=== PATIENT | male | born 1955 | race Two or more races ===

== ENCOUNTER 2018-05-01 13:59 | Emergency (ER) | payer MEDICAID, OTHER ==
[~2018-05-01] VITALS: Ht 175.3 cm; Wt 101.2 kg
[2018-05-01] MEDS ORDERED: cloNIDine HCL 0.1 MG TAB PO ONE ×2 (14:15→16:45)
[2018-05-01 14:44] LABS: Basophils # (auto) 0.1 uL; Basophils % (auto) 1.3 % (0.0-2.0); Eosinophils # (auto) 0.3 uL; Eosinophils % (auto) 3.8 % (0.0-7.0); Hematocrit 44.3 % (41.0-53.0); Hemoglobin 15.4 g/dL (13.5-17.5); Lymphocytes # (auto) 2.7 uL; Lymphocytes % (auto) 39.5 % (10.0-50.0); Mean Corpuscular Hemoglobin 32.5 pg (28.0-32.0); Mean Corpuscular Hgb Conc. 34.6 g/dL (32.0-36.0); Mean Corpuscular Volume 93.8 fL (80.0-100.0); Monocytes # (auto) 0.4 uL; Monocytes % (auto) 5.5 % (0.0-12.0); Neutrophils # (auto) 3.4 uL; Neutrophils % (auto) 49.9 % (37.0-80.0); Nucleated Red Blood Cells % 0.2 %; Platelet Count (auto) 328 10^3/uL (140-450); Red Blood Cells 4.73 10^6/uL (4.5-5.90); Red Cell Distribution Width 13.4 % (11.8-14.3); White Blood Cell 6.9 10^3/uL (4.4-10.8)
[2018-05-01 14:57] LABS: INR 0.97 (0.9-1.15); Partial Thromboplastin Time 29.4 sec (23.78-33.04); Prothrombin Time 10.4 sec (9.27-12.13)
[2018-05-01 15:06] LABS: Alanine Aminotransferase 38 U/L (16-61); Alkaline Phosphatase 103 U/L (45-117); Anion Gap 9 (5-15); Aspartate Aminotransferase 28 U/L (15-37); BUN/Creatinine Ratio 18.9; Bilirubin, Total 0.7 mg/dL (0.2-1.0); Blood Urea Nitrogen 20 mg/dL (7-18); Calcium 8.4 mg/dL (8.5-10.1); Carbon Dioxide 23 mmol/L (21-32); Chloride 109 mmol/L (98-107); GFR African American 92 mL/min; GFR Non-African American 76 mL/min; Glucose 94 mg/dL (74-106); Sodium 141 mmol/L (136-145); Total Protein 7.9 g/dL (6.4-8.2)
[2018-05-01 16:43] VITALS: BP 161/111
== END 2018-05-01 17:29 | disposition home or self-care (01) ==
LOC: ER 14:05
DX: I48.91 Unspecified atrial fibrillation (principal); I10 Essential (primary) hypertension
CPT/HCPCS: 36415; 80053; 83880; 84484; 85025; 85610; 85730; 93005

== ENCOUNTER 2024-12-30 10:28 | Inpatient (IN) | payer MEDICAID ==
[2024-12-23 12:29] LABS: Urine Bacteria None Seen /hpf (None Seen)
[2024-12-23 12:40] LABS: Basophils # (auto) 0.1 10 ^3/uL (0-0.2); Basophils % (auto) 0.6 % (0.0-2.0); Eosinophils # (auto) 0.2 10 ^3/uL (0-0.8); Hematocrit 41.9 % (41.0-53.0); Hemoglobin 14.1 g/dL (13.5-17.5); Lymphocytes # (auto) 2.3 10 ^3/uL (0.4-5.4); Lymphocytes % (auto) 20.9 % (10.0-50.0); Mean Corpuscular Hemoglobin 30.6 pg (28.0-32.0); Mean Corpuscular Hgb Conc. 33.6 g/dL (32.0-36.0); Mean Corpuscular Volume 91.1 fL (80.0-100.0); Monocytes # (auto) 0.6 10 ^3/uL (0-1.3); Monocytes % (auto) 5.8 % (0.0-12.0); Neutrophils # (auto) 7.6 10 ^3/uL (1.6-8.6); Neutrophils % (auto) 70.7 % (37.0-80.0); Nucleated Red Blood Cells % 0.1 %; Platelet Count (auto) 332 10^3/uL (140-450); Red Blood Cells 4.59 10^6/uL (4.5-5.90); Red Cell Distribution Width 12.6 % (11.8-14.3); White Blood Cell 10.8 10^3/uL (4.4-10.8)
[2024-12-23 12:54] LABS: INR 1.01 (0.9-1.15); Partial Thromboplastin Time 28.5 SEC (24.5-34.5); Prothrombin Time 10.7 sec (9.3-11.8)
[2024-12-23 13:09] LABS: Urine Blood Negative /uL (Negative); Urine Clarity Turbid (Clear); Urine Color Yellow (Yellow); Urine Hyaline Cast FEW /lpf (0 - 2); Urine Mucus FEW (None Seen); Urine Protein, UAD 1+ (Negative); Urine Specific Gravity 1.031 (1.001-1.035); Urine Squamous Epithelial Cell FEW /hpf (<5); Urine Urobilinogen 3 mg/dL (Negative); Urine WBC 4 /HPF (0-3)
[2024-12-23 13:52] LABS: Alanine Aminotransferase 20 U/L (7-40); Anion Gap 9 (5-15); Blood Urea Nitrogen 16 mg/dL (9-23); Carbon Dioxide 26 mmol/L (20-31); Chloride 103 mmol/L (98-107); Sodium 138 mmol/L (136-145)
[2024-12-23 13:53] LABS: Albumin 4.8 g/dL (3.2-4.8); Aspartate Aminotransferase 35 U/L (13-40); Bilirubin, Total 0.8 mg/dL (0.2-1.0); Total Protein 7.2 g/dL (5.7-8.2)
[2024-12-23 13:56] LABS: Alkaline Phosphatase 126 U/L (46-116); Glucose 129 mg/dL (74-106)
[~2024-12-30] VITALS: Ht 175.3 cm; Wt 87.2 kg
[~2024-12-30 10:28] MED LIST: APIX5TAB PO; ATOR-507 PO; METF-370 PO; METO25TA5 PO
[2024-12-30] MEDS ORDERED: MIDAZOLAM HCL 2MG/2ML 2ml VIAL (1mg/ml) ONE (11:09)
[2024-12-30] MEDS ORDERED: GLYCOPYRROLATE 0.2 MG/ML 1ML VIAL ONE (11:10)
[2024-12-30] MEDS ORDERED: ONDANSETRON HCL 4 MG/2 ML VIAL ONE (11:10)
[2024-12-30] MEDS ORDERED: PROPOFOL 10 MG/ML 20 ML IV ONE (11:10)
[2024-12-30] MEDS ORDERED: fentaNYL CITRATE 100 MCG/2 ML VL ONE (11:51)
[2024-12-30 12:12] VITALS: PULSE 89; RESP 18; O2SAT 98
--- NOTE | 2024-12-30 12:13 | DVHOP2 ---
Operative Report - 2 Report Details Date: 12/30/24 Preop Diagnosis: 1. Right foot mass 2. Right foot pain Postop Diagnosis: Same as preop Surgeon: Gali Alcantara MD Anesthesiologist: See anesthesia Anesthesia: Mac Consent: The patient was informed of the risks and benefits of the procedure. These include but are not limited to complications of anesthesia, postoperative infection, incomplete relief of symptoms, recurrence of symptoms, damage to blood vessels, nerves and tendons, deep venous thrombosis, pulmonary embolism and possible need for repeat surgery in the future. Complications: None Estimated Blood Loss: Minimal Fluids: See anesthesia Findings: Consistent with diagnosis Indications for Surgery: Worsening wound mass Name of Procedure Performed 1. Right foot mass removal (14144) Procedure Details Procedure Details: PRE-PROCEDURE INFORMATION: In the pre-op holding area, the extremity to be operated on was clearly marked and the patient verified correct laterality of the marking. The patient was transferred to the OR table and placed in a supine position. A timeout was performed in which identification of the correct patient, procedure, location, and materials was done. The right foot and leg were prepped and draped in normal sterile fashion. DESCRIPTION OF PROCEDURE: Attention was directed to the right foot where the soft tissue mass was located, where a linear longitudinal incision was made. This incision was deepened through blunt and sharp dissection. Care was taken to avoid damage to neurovascular structures throughout dissection. Hemostasis during dissection was achieved via electrocautery. The incision was carried to the level of the soft tissue mass. Utilizing sharp instrumentation, this soft tissue mass was resected and sent to pathology for evaluation. All surgical wounds were irrigated copiously with saline and closed in layers with the aforementioned suture material. A dry sterile dressing was placed on the surgical extremity. The patient was placed in a POSTOPERATIVE INFORMATION: The patient tolerated the above noted procedure and anesthesia well and was transferred to the PACU with vital signs stable, and vascular status intact with capillary refill intact to all digits. Patient will be admitted. Patient will need to have a graft placed on Saturday. Condition Good Disposition Still a Patient GALI ALCANTARAM Dec 30, 2024 12:13
[2024-12-30] MEDS ORDERED: HYDROmorphone HCL 2 MG/ML VL/or syr IV PRN (12:30)
[2024-12-30] MEDS ORDERED: NITROGLYCERIN 0.4 MG SL TAB SL PRN (13:15)
[2024-12-30] MEDS ORDERED: MORPHINE SULFATE INJ 2 MG/ml SYRG IV PRN (13:15)
[2024-12-30] MEDS ORDERED: DEXTROSE (50%) 50ML SYRG IV PRN (14:30)
--- NOTE | 2024-12-30 14:30 | DVHHP2 ---
Review of Systems Allergies: Coded Allergies: NO KNOWN ALLERGIES (Unverified , 05/01/18) Medications Current Medications Medications Dose Ordered Sig/Rianna Route Start Time Stop Time Status Last Admin Dose Admin Nitroglycerin 0.4 mg Q5MINP PRN SL 12/30/24 13:15 UNV Morphine Sulfate 2 mg Q30M PRN IV 12/30/24 13:15 UNV Exam Vital Signs Vital Signs Date Time Temp Pulse Resp B/P (MAP) Pulse Ox O2 Delivery O2 Flow Rate FiO2 12/30/24 14:00 81 16 148/100 (116) 97 12/30/24 12:12 Mask 6.0 98 12/30/24 12:12 98.3 98.3 Labs/Xrays Labs Test 12/30/24 12:29 12/23/24 12:26 Range/Units POC Glucose 99 70-106 mg/dl White Blood Count 10.8 4.4-10.8 10^3/uL Red Blood Count 4.59 4.5-5.90 10^6/uL Hemoglobin 14.1 13.5-17.5 g/dL Hematocrit 41.9 41.0-53.0 % Mean Corpuscular Volume 91.1 80.0-100.0 fL Mean Corpuscular Hemoglobin 30.6 28.0-32.0 pg Mean Corpuscular Hemoglobin Concent 33.6 32.0-36.0 g/dL Red Cell Distribution Width 12.6 11.8-14.3 % Platelet Count 332 140-450 10^3/uL Mean Platelet Volume 7.2 6.9-10.8 fL Neutrophils (%) (Auto) 70.7 37.0-80.0 % Lymphocytes (%) (Auto) 20.9 10.0-50.0 % Monocytes (%) (Auto) 5.8 0.0-12.0 % Eosinophils (%) (Auto) 2.0 0.0-7.0 % Basophils (%) (Auto) 0.6 0.0-2.0 % Neutrophils # (Auto) 7.6 1.6-8.6 10 ^3/uL Lymphocytes # (Auto) 2.3 0.4-5.4 10 ^3/uL Monocytes # (Auto) 0.6 0-1.3 10 ^3/uL Eosinophils # (Auto) 0.2 0-0.8 10 ^3/uL Basophils # (Auto) 0.1 0-0.2 10 ^3/uL Nucleated Red Blood Cells 0.1 % Prothrombin Time 10.7 9.3-11.8 sec Prothrombin Time INR 1.01 0.9-1.15 Activated Partial Thromboplast Time 28.5 24.5-34.5 SEC Urine Color Yellow Yellow Urine Clarity Turbid H Clear Urine pH 6.0 5.0-9.0 Urine Specific [place] 1.031 1.001-1.035 Urine Protein 1+ H Negative Urine Ketones Trace Negative Urine Blood Negative Negative /uL Urine Nitrite Negative Negative Urine Bilirubin Negative Negative Urine Urobilinogen 3 H Negative mg/dL Urine Leukocyte Esterase Trace Negative /uL Urine RBC 43 0 - 3 /hpf Urine Microscopic WBC 4 H 0-3 /HPF Urine Squamous Epithelial Cells Few <5 /hpf Urine Bacteria None seen None Seen /hpf Urine Hyaline Casts Few 0 - 2 /lpf Urine Mucus Few None Seen Urine Glucose Trace Normal mg/dL Sodium Level 138 136-145 mmol/L Potassium Level 4.0 3.5-5.1 mmol/L Chloride Level 103 98-107 mmol/L Carbon Dioxide Level 26 20-31 mmol/L Anion Gap 9 5-15 Blood Urea Nitrogen 16 9-23 mg/dL Creatinine 0.84 0.700-1.30 mg/dL Glomerular Filtration Rate Calc 96 >90 mL/min BUN/Creatinine Ratio 19.0 10.0-20.0 Serum Glucose 129 H 74-106 mg/dL Calcium Level 10.0 8.7-10.4 mg/dL Total Bilirubin 0.8 0.2-1.0 mg/dL Aspartate Amino Transferase (AST) 35 13-40 U/L Alanine Aminotransferase (ALT) 20 7-40 U/L Alkaline Phosphatase 126 H 46-116 U/L Total Protein 7.2 5.7-8.2 g/dL Albumin 4.8 3.2-4.8 g/dL Assessment/Plan Assessment/Plan see dictated note Plan discussed with: Patient My Orders Orders - NBA LEYVA MD Procedure Category Date Status Time Admit ADMIT 12/30/24 Transmitted 13:07 Oxygen By Nasal RT 12/30/24 Transmitted Cannula 13:07 Nitroglycerin PHA 12/30/24 Logged Sublingual (Ntrostat 13:15 Morphine Sulfate PHA 12/30/24 Logged Injection 13:15 Stat Ekg For Chest [facility] 12/30/24 In Process Pain 13:07 Notify Md Of Changes [facility] 12/30/24 In Process From Base 13:07 Track Patrol For [facility] 12/30/24 In Process 24 Hours 13:07 Emergency Dysrhythmia [facility] 12/30/24 In Process Protocol 13:07 Rhythm Strips Once [facility] 12/30/24 In Process Every Shift 13:07 Consistent DIET 12/30/24 Verified Carb(Ccho)Diabetes Dinner Glucose Blood PHA 12/30/24 Verified (Accu-Chek Comfort 17:00 Mild Sliding Scale PHA 12/30/24 Verified 17:00 Date of Service: Dec 30, 2024 Billing Provider: NBA LEYVA MD Common Visit Codes: [id number] INP/OBS CARE (HIGH) NBA LEYVA MD Dec 30, 2024 14:30
--- NOTE | 2024-12-30 14:57 | DVHHP ---
ADMIT DATE: 12/30/2024 HISTORY OF PRESENT ILLNESS: The patient is a 69-year-old gentleman who was admitted after he underwent surgery on the right foot for removal of right foot mass. The patient at this time complains of minimal pain in the right foot. No chest pain or shortness of breath. No nausea or vomiting. REVIEW OF SYSTEMS: Review of rest of systems are otherwise currently negative. PAST MEDICAL HISTORY: Significant for atrial fibrillation, hyperlipidemia, diabetes and hypertension. MEDICATIONS: Include Eliquis, Lipitor, metformin, metoprolol. ALLERGIES: No known drug allergies. SOCIAL HISTORY: Denies smoking or alcohol. Lives at home with his . FAMILY HISTORY: Negative. PHYSICAL EXAMINATION: GENERAL: The patient is awake, alert. VITAL SIGNS: Temperature of 98.3; pulse 81 per minute, irregular; blood pressure 148/100. SHEENT: Unremarkable. NECK: There is no JVD, no pedal edema. LUNGS: Equal bilaterally. No added sounds. CARDIOVASCULAR: S1, S2 are regular. No murmurs. ABDOMEN: Soft. There is no organomegaly. NEUROLOGIC: Nonfocal. MUSCULOSKELETAL: The right foot is currently in the dressing. ASSESSMENT AND PLAN: * Diabetes mellitus. He will be placed on sliding scale insulin and the hemoglobin A1c will be checked. * Atrial fibrillation for which Eliquis is on hold. * Hypertension. * Hyperlipidemia. * Obesity. * Status post right foot surgery for removal of right foot mass. The patient will be placed on pain medications and followed up with Dr. Jeff. MD PAVEL Donald/CINDY/ESTEFANÍA TID: [id number] RECEIPT: [id number]
[2024-12-30 16:00] VITALS: PULSE 81
[2024-12-30 16:18] VITALS: BP_SYST 142; BP_SYST 147; BP_DIAS 104; BP_DIAS 88; PULSE 69; PULSE 72; RESP 17; RESP 18; TEMP 97.7; TEMP 98.6; O2SAT 97
[2024-12-30] MEDS: InsuLIN REG 1unit/0.01ml Soln (100units/ml) SC SCH (17:00)
[2024-12-30] MEDS: ACCU-CHEK COMFORT CURVE STRIP VI SCH (17:51)
[2024-12-30] MEDS: METOPROLOL SUCCINATE XL 50 MG TAB PO ONE (18:04)
[2024-12-30 20:00] VITALS: PULSE 81
[2024-12-30 21:00] VITALS: BP 143/94; PULSE 60; RESP 18; TEMP 98.4; O2SAT 95
[2024-12-31] VITALS (7 sets, daily range): BP systolic 138–144; BP diastolic 81–94; PULSE 70–94; RESP 18–20; TEMP 98–98.5; O2SAT 95–97
[2024-12-31 06:41] LABS: Basophils # (auto) 0 10 ^3/uL (0-0.2); Basophils % (auto) 0.4 % (0.0-2.0); Eosinophils # (auto) 0.1 10 ^3/uL (0-0.8); Eosinophils % (auto) 1.4 % (0.0-7.0); Hematocrit 40.6 % (41.0-53.0); Hemoglobin 13.6 g/dL (13.5-17.5); Lymphocytes # (auto) 2.4 10 ^3/uL (0.4-5.4); Lymphocytes % (auto) 25.2 % (10.0-50.0); Mean Corpuscular Hemoglobin 30.5 pg (28.0-32.0); Mean Corpuscular Hgb Conc. 33.6 g/dL (32.0-36.0); Mean Corpuscular Volume 90.9 fL (80.0-100.0); Monocytes # (auto) 0.5 10 ^3/uL (0-1.3); Neutrophils # (auto) 6.5 10 ^3/uL (1.6-8.6); Platelet Count (auto) 338 10^3/uL (140-450); Red Blood Cells 4.47 10^6/uL (4.5-5.90); Red Cell Distribution Width 12.5 % (11.8-14.3); White Blood Cell 9.5 10^3/uL (4.4-10.8)
[2024-12-31 06:57] LABS: Alanine Aminotransferase 15 U/L (7-40); Albumin 4.3 g/dL (3.2-4.8); Alkaline Phosphatase 80 U/L (46-116); Anion Gap 9 (5-15); Aspartate Aminotransferase 19 U/L (13-40); BUN/Creatinine Ratio 17.8 (10.0-20.0); Bilirubin, Total 0.8 mg/dL (0.2-1.0); Blood Urea Nitrogen 13 mg/dL (9-23); Calcium 9.1 mg/dL (8.7-10.4); Carbon Dioxide 26 mmol/L (20-31); Chloride 104 mmol/L (98-107); Glucose 101 mg/dL (74-106); Potassium 3.9 mmol/L (3.5-5.1); Sodium 139 mmol/L (136-145); Total Protein 6.5 g/dL (5.7-8.2)
[2024-12-31] MEDS: METOPROLOL SUCCINATE XL 50 MG TAB PO SCH (08:49)
[2024-12-31] MEDS: HYDROcodone-ACET 5/325MG TAB PO PRN (08:49)
--- NOTE | 2024-12-31 13:04 | DVHPN2 ---
Subjective Patient is a 69-year-old male who underwent a medial foot mass excision yesterday. Patient states that he has been doing well with minimal pain. Patient has kept the dressings clean dry and intact. Patient was dealing with the mass free years at this point. The mass was sent for pathology determine the origin of it. Patient does have as postop shoe and has been ambulating as tolerated. Patient denies any recent nausea, vomiting, fevers, chills. Changes from previous H/P or p: No Changes Objective Vitals Vital Signs Date Time Temp Pulse Resp B/P (MAP) Pulse Ox O2 Delivery O2 Flow Rate FiO2 12/31/24 08:57 98.2 84 20 138/94 (109) 95 98.2 12/31/24 08:00 Room Air* 0 21 Intake/Output Intake and Output 12/31/24 07:00 Intake Total 900 ml Balance 900 ml Intake Oral 800 ml IV Total 100 ml # Voids 6 Exam DERMATOLOGIC EXAM: - Skin is dry and cool to the touch dry bilaterally. - Nails 1-5 of the bilateral foot are thickened, discolored, dystrophic, and tender to palpate with subungual debris - Hair loss noted to bilateral feet - large open incision on the medial aspect of the right foot VASCULAR EXAM: - DP and PT pulses are palpable bilaterally. - FORMULATION TECHNICIAN is brisk to all digits. - Feet are cool to touch compared to lower legs bilaterally. NEUROLOGIC EXAM: - Normal light touch sensation to the superficial peroneal, deep peroneal, sural, saphenous, and tibial nerve branches. - Protective sensation is diminished as tested with a 5.07 10g [place] bilaterally. MUSCULOSKELETAL EXAM: - No gross deformities - Muscle strength is 5/5 and active motion is pain-free and symmetrical bilaterally - No pain or crepitation with passive range of motion bilaterally to all major pedal joints Medications Current Medications Medications Dose Ordered Sig/Rianna Route Start Time Stop Time Status Last Admin Dose Admin Nitroglycerin 0.4 mg Q5MINP PRN SL 12/30/24 13:15 Morphine Sulfate 2 mg Q30M PRN IV 12/30/24 13:15 Diagnostic Test (Pha) 1 strip ACHS 12/30/24 17:00 12/31/24 11:28 1 STRIP Insulin Human Regular ACHS SC 12/30/24 17:00 12/30/24 22:01 2 UNITS Dextrose 50 ml UD PRN IV 12/30/24 14:30 Acetaminophen/ Hydrocodone Bitart 1 tab Q6HPRN PRN PO 12/30/24 14:30 12/31/24 08:49 1 TAB Morphine Sulfate 2 mg Q4HPRN PRN IV 12/30/24 14:30 Ondansetron HCl 4 mg Q6HPRN PRN IV 12/30/24 14:30 Acetaminophen 650 mg Q6HP PRN PO 12/30/24 14:30 Metoprolol Succinate 25 mg DAILY PO 12/31/24 10:00 12/31/24 08:49 25 MG Hydralazine HCl 10 mg Q6HP PRN IV 12/30/24 14:30 Laboratory Results Laboratory Tests 12/31/24 05:59 Chemistry Test 12/31/24 05:59 Albumin 4.3 g/dL (3.2-4.8) Calcium Level 9.1 mg/dL (8.7-10.4) Total Protein 6.5 g/dL (5.7-8.2) LFT Test 12/31/24 05:59 Alanine Aminotransferase (ALT) 15 U/L (7-40) Alkaline Phosphatase 80 U/L (46-116) Aspartate Amino Transferase (AST) 19 U/L (13-40) Total Bilirubin 0.8 mg/dL (0.2-1.0) HgA1c, TSH Test 12/31/24 05:59 Hemoglobin A1c 5.3 % A1C (<5.7) Urinalysis Test 12/23/24 12:26 Urine Color Yellow (Yellow) Urine Clarity Turbid (Clear) H Urine pH 6.0 (5.0-9.0) Urine Specific [place] 1.031 (1.001-1.035) Urine Protein 1+ (Negative) H Urine Ketones Trace (Negative) Urine Blood Negative /uL (Negative) Urine Nitrite Negative (Negative) Urine Bilirubin Negative (Negative) Urine Urobilinogen 3 mg/dL (Negative) H Urine Leukocyte Esterase Trace /uL (Negative) Urine RBC 43 /hpf (0 - 3) Urine Microscopic WBC 4 /HPF (0-3) H Urine Squamous Epithelial Cells Few /hpf (<5) Urine Bacteria None seen /hpf (None Seen) Urine Hyaline Casts Few /lpf (0 - 2) Urine Mucus Few (None Seen) Urine Glucose Trace mg/dL (Normal) Assessment/Plan Assessment/Plan ASSESSMENT: Patient is a _ year old seen on the floor for a worsening ulcer PLAN: - The patients chart was reviewed, clinical findings were discussed with the patient, the etiologies of the conditions were discussed in detail, and a treatment plan was agreed to at this time, with both oral and written instructions provided. - discussed with the patient due to significant skin loss we will plan to take him back to the OR tomorrow for placement of dermal graft - patient will have the dermal graft in place for about 3 weeks - patient can weightbear as tolerated in the postop shoe - patient to be discharged home on 2 weeks of Augmentin 875 - patient will be NPO at midnight - take him to the OR today - we will get cultures in the OR - can weightbear as tolerated in postoperative shoe All questions were answered and concerns addressed to the patient's satisfaction. The patient was given the phone number to the clinic and was told how to make contact with the clinic should any concerns or questions arise. Patient understands that if any questions or concerns arise prior to the next appointment, we should be contacted immediately. 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
--- NOTE | 2024-12-31 14:36 | DVHPN2 ---
Progress Note Date Seen: Dec 31, 2024 Medical Necessity Reason Pt with a Central, PICC or Fol: No Subjective Patient reports: No new complaints Review of Systems: HEENT:Normal, CVS:Normal, RESPIRATORY:Normal, GI:Normal, :Normal, MSK:Normal, NEURO:Normal Objective vital signs Vital Sign Date Time Temp Pulse Resp B/P (MAP) Pulse Ox O2 Delivery O2 Flow Rate FiO2 12/31/24 13:00 98.4 92 18 144/87 (106) 96 98.4 12/31/24 08:00 Room Air* 0 21 Total Intake and Output 12/30/24 12/30/24 12/31/24 15:00 23:00 07:00 Intake Total 100 ml 0 ml 800 ml Balance 100 ml 0 ml 800 ml medications Current Medications Medications Dose Ordered Sig/Rianna Route Start Time Stop Time Status Last Admin Dose Admin Nitroglycerin 0.4 mg Q5MINP PRN SL 12/30/24 13:15 Morphine Sulfate 2 mg Q30M PRN IV 12/30/24 13:15 Diagnostic Test (Pha) 1 strip ACHS 12/30/24 17:00 12/31/24 11:28 1 STRIP Insulin Human Regular ACHS SC 12/30/24 17:00 12/30/24 22:01 2 UNITS Dextrose 50 ml UD PRN IV 12/30/24 14:30 Acetaminophen/ Hydrocodone Bitart 1 tab Q6HPRN PRN PO 12/30/24 14:30 12/31/24 08:49 1 TAB Morphine Sulfate 2 mg Q4HPRN PRN IV 12/30/24 14:30 Ondansetron HCl 4 mg Q6HPRN PRN IV 12/30/24 14:30 Acetaminophen 650 mg Q6HP PRN PO 12/30/24 14:30 Metoprolol Succinate 25 mg DAILY PO 12/31/24 10:00 12/31/24 08:49 25 MG Hydralazine HCl 10 mg Q6HP PRN IV 12/30/24 14:30 Examination: GENERAL:Normal, HEENT:Normal, NECK:Normal, LUNGS:Normal, CVS:Normal, ABDOMEN:Normal, MSK:Normal, MSK:Abnormal (RIGHT FOOT DRESSING), SKIN:Normal, NEURO:Normal, :Normal laboratory and microbiology Laboratory Tests 12/31/24 05:59 Test 12/31/24 05:59 Range/Units Serum Glucose 101 74-106 mg/dL Problem List/Assessment/Plan Problem List/Assessment/Plan * Diabetes mellitus. He will be placed on sliding scale insulin and the hemoglobin A1c will be checked. * Atrial fibrillation for which Eliquis is on hold. * Hypertension. * Hyperlipidemia. * Obesity. * Status post right foot surgery for removal of right foot mass. The patient will be placed on pain medications and followed up with Dr. Jeff. Repeat surg planned for am advance care planning- full code- time spent 19 mins Plan discussed with: Patient My Orders My Orders Orders - NBA LEYVA MD Procedure Category Date Status Time Discontinue Tele JUSTIN 12/31/24 In Process 14:31 Transfer Orders XFER 12/31/24 Transmitted 14:31 Date of Service: Dec 31, 2024 Billing Provider: NBA LEYVA MD Common Visit Codes: [id number] INP/OBS CARE(HIGH) Secondary Visit Codes: [id number] CARE PLAN 30 MINUTES NBA LEYVA MD Dec 31, 2024 14:36
[2024-12-31] MEDS: MORPHINE SULFATE INJ 2 MG/ml SYRG IV PRN (18:03)
[2025-01-01] VITALS (8 sets, daily range): BP systolic 140–155; BP diastolic 86–98; PULSE 56–87; RESP 18–20; TEMP 97.6–99; O2SAT 94–100
--- NOTE | 2025-01-01 05:44 | DVH ---
EXAM: XR Chest, 1 View CLINICAL INDICATION: PRE OP TECHNIQUE: Frontal view of the chest. COMPARISON: None FINDINGS: LUNGS AND PLEURAL SPACES: Unremarkable. No consolidation. No pneumothorax. HEART: Unremarkable. No cardiomegaly. MEDIASTINUM: Unremarkable. Normal mediastinal contour. BONES/JOINTS: Unremarkable. No acute fracture. OTHER FINDINGS: . None. ... IMPRESSION: No acute cardiopulmonary process.
--- NOTE | 2025-01-01 12:40 | DVHPN2 ---
Subjective Patient is a 69-year-old male who underwent a medial foot mass excision yesterday. Patient states that he has been doing well with minimal pain. Patient has kept the dressings clean dry and intact. Patient was dealing with the mass free years at this point. The mass was sent for pathology determine the origin of it. Patient does have as postop shoe and has been ambulating as tolerated. Patient denies any recent nausea, vomiting, fevers, chills. Changes from previous H/P or p: No Changes Objective Vitals Vital Signs Date Time Temp Pulse Resp B/P (MAP) Pulse Ox O2 Delivery O2 Flow Rate FiO2 01/01/25 10:44 77 145/88 01/01/25 09:00 98.0 18 95 98.0 01/01/25 08:00 Room Air* 0 21 Intake/Output Intake and Output 01/01/25 07:00 Intake Total 1350 ml Output Total 300 ml Balance 1050 ml Intake Oral 1350 ml Output Urine Total 300 ml # Voids 4 Exam DERMATOLOGIC EXAM: - Skin is dry and cool to the touch dry bilaterally. - Nails 1-5 of the bilateral foot are thickened, discolored, dystrophic, and tender to palpate with subungual debris - Hair loss noted to bilateral feet - large open incision on the medial aspect of the right foot VASCULAR EXAM: - DP and PT pulses are palpable bilaterally. - FOREIGN SERVICE OFFICER is brisk to all digits. - Feet are cool to touch compared to lower legs bilaterally. NEUROLOGIC EXAM: - Normal light touch sensation to the superficial peroneal, deep peroneal, sural, saphenous, and tibial nerve branches. - Protective sensation is diminished as tested with a 5.07 10g [place] bilaterally. MUSCULOSKELETAL EXAM: - No gross deformities - Muscle strength is 5/5 and active motion is pain-free and symmetrical bilaterally - No pain or crepitation with passive range of motion bilaterally to all major pedal joints Medications Current Medications Medications Dose Ordered Sig/Rianna Route Start Time Stop Time Status Last Admin Dose Admin Nitroglycerin 0.4 mg Q5MINP PRN SL 12/30/24 13:15 Morphine Sulfate 2 mg Q30M PRN IV 12/30/24 13:15 Diagnostic Test (Pha) 1 strip ACHS 12/30/24 17:00 01/01/25 10:53 1 STRIP Insulin Human Regular ACHS SC 12/30/24 17:00 12/31/24 22:00 3 UNITS Dextrose 50 ml UD PRN IV 12/30/24 14:30 Acetaminophen/ Hydrocodone Bitart 1 tab Q6HPRN PRN PO 12/30/24 14:30 12/31/24 22:30 1 TAB Morphine Sulfate 2 mg Q4HPRN PRN IV 12/30/24 14:30 12/31/24 18:03 2 MG Ondansetron HCl 4 mg Q6HPRN PRN IV 12/30/24 14:30 Acetaminophen 650 mg Q6HP PRN PO 12/30/24 14:30 Metoprolol Succinate 25 mg DAILY PO 12/31/24 10:00 01/01/25 10:44 25 MG Hydralazine HCl 10 mg Q6HP PRN IV 12/30/24 14:30 Laboratory Results Laboratory Tests 12/31/24 05:59 Urinalysis Test 12/23/24 12:26 Urine Color Yellow (Yellow) Urine Clarity Turbid (Clear) H Urine pH 6.0 (5.0-9.0) Urine Specific [place] 1.031 (1.001-1.035) Urine Protein 1+ (Negative) H Urine Ketones Trace (Negative) Urine Blood Negative /uL (Negative) Urine Nitrite Negative (Negative) Urine Bilirubin Negative (Negative) Urine Urobilinogen 3 mg/dL (Negative) H Urine Leukocyte Esterase Trace /uL (Negative) Urine RBC 43 /hpf (0 - 3) Urine Microscopic WBC 4 /HPF (0-3) H Urine Squamous Epithelial Cells Few /hpf (<5) Urine Bacteria None seen /hpf (None Seen) Urine Hyaline Casts Few /lpf (0 - 2) Urine Mucus Few (None Seen) Urine Glucose Trace mg/dL (Normal) Assessment/Plan Assessment/Plan ASSESSMENT: Patient is a 69 year old seen on the floor 2 days s/p from a mass removal PLAN: - The patients chart was reviewed, clinical findings were discussed with the patient, the etiologies of the conditions were discussed in detail, and a treatment plan was agreed to at this time, with both oral and written instructions provided. - discussed with the patient due to significant skin loss we will plan to take him back to the OR tomorrow for placement of dermal graft - patient will have the dermal graft in place for about 3 weeks - patient can weightbear as tolerated in the postop shoe - patient to be discharged home on 2 weeks of Augmentin 875 - patient has been NPO since midnight - take him to the OR today - we will get cultures in the OR - can weightbear as tolerated in postoperative shoe All questions were answered and concerns addressed to the patient's satisfaction. The patient was given the phone number to the clinic and was told how to make contact with the clinic should any concerns or questions arise. Patient understands that if any questions or concerns arise prior to the next appointment, we should be contacted immediately. 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
[2025-01-01] MEDS ORDERED: ONDANSETRON HCL 4 MG/2 ML VIAL ONE (12:58)
[2025-01-01] MEDS ORDERED: KETOROLAC TROMETH 30 MG/ML 1ML VIAL ONE (12:58)
[2025-01-01] MEDS ORDERED: PROPOFOL 10 MG/ML 20 ML IV ONE (12:58)
[2025-01-01] MEDS ORDERED: GLYCOPYRROLATE 0.2 MG/ML 1ML VIAL ONE (12:58)
[2025-01-01] MEDS ORDERED: DexAMETHasone SOD PHOS 10MG/1ML VIAL INJ ONE (12:58)
[2025-01-01] MEDS ORDERED: LIDOCAINE 1% INJ PF 5ML AMP ONE (12:58)
[2025-01-01] MEDS ORDERED: KETAMINE 50mg/ML 1ml syringe ONE (12:59)
--- NOTE | 2025-01-01 14:28 | DVHPN2 ---
Reviewed: Care Plan, H&P, Labs, Medications, Previous Orders, Radiology Changes from previous H/P or p: No Changes General: Per HPI Objective Vitals Vital Signs Date Time Temp Pulse Resp B/P (MAP) Pulse Ox O2 Delivery O2 Flow Rate FiO2 01/01/25 13:00 98.2 56 18 155/98 (117) 95 98.2 01/01/25 08:00 Room Air* 0 21 Intake/Output Intake and Output 01/01/25 07:00 Intake Total 1350 ml Output Total 300 ml Balance 1050 ml Intake Oral 1350 ml Output Urine Total 300 ml # Voids 4 Medications Current Medications Medications Dose Ordered Sig/Rianna Route Start Time Stop Time Status Last Admin Dose Admin Nitroglycerin 0.4 mg Q5MINP PRN SL 12/30/24 13:15 Morphine Sulfate 2 mg Q30M PRN IV 12/30/24 13:15 Diagnostic Test (Pha) 1 strip ACHS 12/30/24 17:00 01/01/25 10:53 1 STRIP Insulin Human Regular ACHS SC 12/30/24 17:00 12/31/24 22:00 3 UNITS Dextrose 50 ml UD PRN IV 12/30/24 14:30 Acetaminophen/ Hydrocodone Bitart 1 tab Q6HPRN PRN PO 12/30/24 14:30 12/31/24 22:30 1 TAB Morphine Sulfate 2 mg Q4HPRN PRN IV 12/30/24 14:30 12/31/24 18:03 2 MG Ondansetron HCl 4 mg Q6HPRN PRN IV 12/30/24 14:30 Acetaminophen 650 mg Q6HP PRN PO 12/30/24 14:30 Metoprolol Succinate 25 mg DAILY PO 12/31/24 10:00 01/01/25 10:44 25 MG Hydralazine HCl 10 mg Q6HP PRN IV 12/30/24 14:30 Laboratory Results Laboratory Tests 12/31/24 05:59 Urinalysis Test 12/23/24 12:26 Urine Color Yellow (Yellow) Urine Clarity Turbid (Clear) H Urine pH 6.0 (5.0-9.0) Urine Specific [place] 1.031 (1.001-1.035) Urine Protein 1+ (Negative) H Urine Ketones Trace (Negative) Urine Blood Negative /uL (Negative) Urine Nitrite Negative (Negative) Urine Bilirubin Negative (Negative) Urine Urobilinogen 3 mg/dL (Negative) H Urine Leukocyte Esterase Trace /uL (Negative) Urine RBC 43 /hpf (0 - 3) Urine Microscopic WBC 4 /HPF (0-3) H Urine Squamous Epithelial Cells Few /hpf (<5) Urine Bacteria None seen /hpf (None Seen) Urine Hyaline Casts Few /lpf (0 - 2) Urine Mucus Few (None Seen) Urine Glucose Trace mg/dL (Normal) Assessment/Plan Assessment/Plan Diabetes mellitus. He will be placed on sliding scale insulin and the hemoglobin A1c will be checked Atrial fibrillation for which Eliquis is on hold. Hypertension Hyperlipidemia Obesity Status post right foot surgery for removal of right foot mass. The patient will be placed on pain medications and followed up with Dr. Jeff. 01/01/2025 pending surgery again this AM Plan discussed with: Patient Date of Service: Jan 01, 2025 Billing Provider: ALEKSANDAR ANDERSON DO Common Visit Codes: [id number] INP/OBS CARE(HIGH) ALEKSANDAR ANDERSON DO Jan 01, 2025 14:28
[2025-01-01] MEDS: BUPIVACAINE 0.5% P/F INJ 10 ML VIAL ONE (14:33)
--- NOTE | 2025-01-01 14:55 | DVHOP2 ---
Operative Report - 2 Report Details Date: 01/01/25 Preop Diagnosis: 1. Right foot mass 2. Right foot pain Postop Diagnosis: Same as preop Surgeon: Gali Alcantara MD Anesthesiologist: See anesthesia Anesthesia: Mac Implant: Integra dermal graft 5 x 4 Consent: The patient was informed of the risks and benefits of the procedure. These include but are not limited to complications of anesthesia, postoperative infection, incomplete relief of symptoms, recurrence of symptoms, damage to blood vessels, nerves and tendons, deep venous thrombosis, pulmonary embolism and possible need for repeat surgery in the future. Complications: None Estimated Blood Loss: Minimal Fluids: See anesthesia Findings: Consistent with diagnosis Indications for Surgery: Large mass excision with significant skin loss Name of Procedure Performed 1. Right foot wound bed preparation for graft (34965) 2. Right foot application of dermal graft (40067) Procedure Details Procedure Details: PRE-PROCEDURE INFORMATION: In the pre-op holding area, the extremity to be operated on was clearly marked and the patient verified correct laterality of the marking. The patient was transferred to the OR table and placed in a supine position. A timeout was performed in which identification of the correct patient, procedure, location, and materials was done. The right foot and leg were prepped and draped in normal sterile fashion. DESCRIPTION OF PROCEDURE: Attention was directed to the right foot where the previous soft tissue tissue mass was located. Using a 15 blade, an incision was made over the area at the edges to remove any fibrotic and remaining soft tissue mass. Using a rongeur and a curette, the area was then prepped for placement of dermal graft. Care was taken to avoid damage to neurovascular structures thr oughout dissection. Hemostasis during dissection was achieved via electrocautery. After the wound bed was prepped and adequate blood flows noted to the wound, a 5 x 5 Integra dermal graft was applied to the wound. And the dermal graft was adhered to the wound jack. The wound was then dressed with Xeroform, 4x4s, ABD, Pieter wrap POSTOPERATIVE INFORMATION: The patient tolerated the above noted procedure and anesthesia well and was transferred to the PACU with vital signs stable, and vascular status intact with capillary refill intact to all digits. Patient can be discharged home with Augmentin. Patient is to leave dressings in place until he follows up with me in 1 week. Patient to see me next week in clinic. Patient can weightbear as tolerated with a postoperative shoe Condition Good Disposition [facility] GALI ALCANTARA DPM Jan 01, 2025 14:55
[2025-01-01] MEDS ORDERED: hydrALAZINE HCL 20 MG/ML VL IV PRN (15:00)
[2025-01-01] MEDS ORDERED: ONDANSETRON HCL 4 MG/2 ML VIAL IV PRN (15:00)
[2025-01-01] MEDS ORDERED: FLUMAZENIL 0.1 MG/ML INJ 10ML MDV IV PRN (15:00)
[2025-01-01] MEDS ORDERED: fentaNYL CITRATE 100 MCG/2 ML VL IV PRN (15:00)
[2025-01-01] MEDS ORDERED: ePHEDrine SULFATE 50 MG/ML AMP IV PRN (15:00)
[2025-01-01] MEDS ORDERED: HYDROmorphone HCL 2 MG/ML VL/or syr IV PRN (15:00)
[2025-01-01] MEDS ORDERED: NALOXONE HCL 0.4 MG/ML VIAL IV PRN (15:00)
[2025-01-02] VITALS (7 sets, daily range): BP systolic 133–152; BP diastolic 81–95; PULSE 52–78; RESP 16–20; TEMP 97.8–98.6; O2SAT 91–96
[2025-01-02] MEDS: ACETAMINOPHEN 325 MG TAB PO PRN (20:57)
[2025-01-03] VITALS (7 sets, daily range): BP systolic 129–158; BP diastolic 78–96; PULSE 55–76; RESP 17–18; TEMP 98.2–99.6; O2SAT 95–97
--- NOTE | 2025-01-03 13:18 | DVHPN2 ---
Reviewed: Care Plan, H&P, Labs, Medications, Previous Orders, Radiology Changes from previous H/P or p: No Changes General: Per HPI Objective Vitals Vital Signs Date Time Temp Pulse Resp B/P (MAP) Pulse Ox O2 Delivery O2 Flow Rate FiO2 01/03/25 09:37 75 158/91 01/03/25 08:34 98.3 18 95 98.3 01/02/25 20:00 Room Air* 0 21 Intake/Output Intake and Output 01/03/25 07:00 Intake Total 1690 ml Output Total 750 ml Balance 940 ml Intake Oral 1690 ml Output Urine Total 750 ml # Bowel Movements 2 Medications Current Medications Medications Dose Ordered Sig/Rianna Route Start Time Stop Time Status Last Admin Dose Admin Nitroglycerin 0.4 mg Q5MINP PRN SL 12/30/24 13:15 Morphine Sulfate 2 mg Q30M PRN IV 12/30/24 13:15 Diagnostic Test (Pha) 1 strip ACHS 12/30/24 17:00 01/03/25 11:53 1 STRIP Insulin Human Regular ACHS SC 12/30/24 17:00 01/03/25 11:55 3 UNITS Dextrose 50 ml UD PRN IV 12/30/24 14:30 Acetaminophen/ Hydrocodone Bitart 1 tab Q6HPRN PRN PO 12/30/24 14:30 12/31/24 22:30 1 TAB Morphine Sulfate 2 mg Q4HPRN PRN IV 12/30/24 14:30 01/01/25 16:19 2 MG Ondansetron HCl 4 mg Q6HPRN PRN IV 12/30/24 14:30 Acetaminophen 650 mg Q6HP PRN PO 12/30/24 14:30 01/02/25 20:57 650 MG Metoprolol Succinate 25 mg DAILY PO 12/31/24 10:00 01/03/25 09:37 25 MG Hydralazine HCl 10 mg Q6HP PRN IV 12/30/24 14:30 Laboratory Results Laboratory Tests 12/31/24 05:59 Urinalysis Test 12/23/24 12:26 Urine Color Yellow (Yellow) Urine Clarity Turbid (Clear) H Urine pH 6.0 (5.0-9.0) Urine Specific [place] 1.031 (1.001-1.035) Urine Protein 1+ (Negative) H Urine Ketones Trace (Negative) Urine Blood Negative /uL (Negative) Urine Nitrite Negative (Negative) Urine Bilirubin Negative (Negative) Urine Urobilinogen 3 mg/dL (Negative) H Urine Leukocyte Esterase Trace /uL (Negative) Urine RBC 43 /hpf (0 - 3) Urine Microscopic WBC 4 /HPF (0-3) H Urine Squamous Epithelial Cells Few /hpf (<5) Urine Bacteria None seen /hpf (None Seen) Urine Hyaline Casts Few /lpf (0 - 2) Urine Mucus Few (None Seen) Urine Glucose Trace mg/dL (Normal) Assessment/Plan Assessment/Plan Diabetes mellitus. He will be placed on sliding scale insulin and the hemoglobin A1c will be checked Atrial fibrillation for which Eliquis is on hold. Hypertension Hyperlipidemia Obesity Status post right foot surgery for removal of right foot mass. The patient will be placed on pain medications and followed up with Dr. Jeff. 01/01/2025 pending surgery again this AM 01/02/2025 continue with IV Abx Plan discussed with: Patient Date of Service: Jan 02, 2025 Billing Provider: ALEKSANDAR ANDERSON DO Common Visit Codes: [id number] INP/OBS CARE(HIGH) ALEKSANDAR ANDERSON DO Jan 03, 2025 13:18
--- NOTE | 2025-01-03 13:19 | DVHPN2 ---
Reviewed: Care Plan, H&P, Labs, Medications, Previous Orders, Radiology Changes from previous H/P or p: No Changes General: Per HPI Objective Vitals Vital Signs Date Time Temp Pulse Resp B/P (MAP) Pulse Ox O2 Delivery O2 Flow Rate FiO2 01/03/25 09:37 75 158/91 01/03/25 08:34 98.3 18 95 98.3 01/02/25 20:00 Room Air* 0 21 Intake/Output Intake and Output 01/03/25 07:00 Intake Total 1690 ml Output Total 750 ml Balance 940 ml Intake Oral 1690 ml Output Urine Total 750 ml # Bowel Movements 2 Medications Current Medications Medications Dose Ordered Sig/Rianna Route Start Time Stop Time Status Last Admin Dose Admin Nitroglycerin 0.4 mg Q5MINP PRN SL 12/30/24 13:15 Morphine Sulfate 2 mg Q30M PRN IV 12/30/24 13:15 Diagnostic Test (Pha) 1 strip ACHS 12/30/24 17:00 01/03/25 11:53 1 STRIP Insulin Human Regular ACHS SC 12/30/24 17:00 01/03/25 11:55 3 UNITS Dextrose 50 ml UD PRN IV 12/30/24 14:30 Acetaminophen/ Hydrocodone Bitart 1 tab Q6HPRN PRN PO 12/30/24 14:30 12/31/24 22:30 1 TAB Morphine Sulfate 2 mg Q4HPRN PRN IV 12/30/24 14:30 01/01/25 16:19 2 MG Ondansetron HCl 4 mg Q6HPRN PRN IV 12/30/24 14:30 Acetaminophen 650 mg Q6HP PRN PO 12/30/24 14:30 01/02/25 20:57 650 MG Metoprolol Succinate 25 mg DAILY PO 12/31/24 10:00 01/03/25 09:37 25 MG Hydralazine HCl 10 mg Q6HP PRN IV 12/30/24 14:30 Laboratory Results Laboratory Tests 12/31/24 05:59 Urinalysis Test 12/23/24 12:26 Urine Color Yellow (Yellow) Urine Clarity Turbid (Clear) H Urine pH 6.0 (5.0-9.0) Urine Specific [place] 1.031 (1.001-1.035) Urine Protein 1+ (Negative) H Urine Ketones Trace (Negative) Urine Blood Negative /uL (Negative) Urine Nitrite Negative (Negative) Urine Bilirubin Negative (Negative) Urine Urobilinogen 3 mg/dL (Negative) H Urine Leukocyte Esterase Trace /uL (Negative) Urine RBC 43 /hpf (0 - 3) Urine Microscopic WBC 4 /HPF (0-3) H Urine Squamous Epithelial Cells Few /hpf (<5) Urine Bacteria None seen /hpf (None Seen) Urine Hyaline Casts Few /lpf (0 - 2) Urine Mucus Few (None Seen) Urine Glucose Trace mg/dL (Normal) Assessment/Plan Assessment/Plan Diabetes mellitus. He will be placed on sliding scale insulin and the hemoglobin A1c will be checked Atrial fibrillation for which Eliquis is on hold. Hypertension Hyperlipidemia Obesity Status post right foot surgery for removal of right foot mass. The patient will be placed on pain medications and followed up with Dr. Jeff. 01/01/2025 pending surgery again this AM 01/02/2025 continue with IV Abx 01/03/2025 continue with IV Abx PT/OT to evaluate discharge plan per PT rec's empirical Abx due to recent surgery Plan discussed with: Patient Date of Service: Jan 03, 2025 Billing Provider: ALEKSANDAR ANDERSON DO Common Visit Codes: [id number] INP/OBS CARE(HIGH) ALEKSANDAR ANDERSON DO Jan 03, 2025 13:19
[2025-01-04] VITALS (8 sets, daily range): BP systolic 136–167; BP diastolic 88–101; PULSE 53–98; RESP 16–18; TEMP 98.1–98.9; O2SAT 95–97
[2025-01-04] MEDS: hydrALAZINE HCL 20 MG/ML VL IV PRN (00:18)
[2025-01-04] MEDS: cefTRIAXone 1GM/50ML D5W 50 ML IV SCH (08:55)
--- NOTE | 2025-01-04 12:05 | DVHPN2 ---
Progress Note Date Seen: Jan 04, 2025 Medical Necessity Reason Pt with a Central, PICC or Fol: No Subjective Patient reports: No new complaints Review of Systems: HEENT:Normal, CVS:Normal, RESPIRATORY:Normal, GI:Normal, :Normal, MSK:Normal, NEURO:Normal Objective vital signs Vital Sign Date Time Temp Pulse Resp B/P (MAP) Pulse Ox O2 Delivery O2 Flow Rate FiO2 01/04/25 08:55 83 146/101 01/04/25 08:31 98.5 16 95 98.5 01/04/25 08:00 Room Air* 0 21 Total Intake and Output 01/03/25 01/03/25 01/04/25 15:00 23:00 07:00 Intake Total 400 ml 500 ml 560 ml Output Total 1 ml 1090 ml Balance 400 ml 499 ml -530 ml medications Current Medications Medications Dose Ordered Sig/Rianna Route Start Time Stop Time Status Last Admin Dose Admin Nitroglycerin 0.4 mg Q5MINP PRN SL 12/30/24 13:15 Morphine Sulfate 2 mg Q30M PRN IV 12/30/24 13:15 Diagnostic Test (Pha) 1 strip ACHS 12/30/24 17:00 01/04/25 11:15 1 STRIP Insulin Human Regular ACHS SC 12/30/24 17:00 01/04/25 11:18 2 UNITS Dextrose 50 ml UD PRN IV 12/30/24 14:30 Acetaminophen/ Hydrocodone Bitart 1 tab Q6HPRN PRN PO 12/30/24 14:30 12/31/24 22:30 1 TAB Morphine Sulfate 2 mg Q4HPRN PRN IV 12/30/24 14:30 01/01/25 16:19 2 MG Ondansetron HCl 4 mg Q6HPRN PRN IV 12/30/24 14:30 Acetaminophen 650 mg Q6HP PRN PO 12/30/24 14:30 01/04/25 00:17 650 MG Metoprolol Succinate 25 mg DAILY PO 12/31/24 10:00 01/04/25 08:55 25 MG Hydralazine HCl 10 mg Q6HP PRN IV 12/30/24 14:30 01/04/25 00:18 10 MG Ceftriaxone Sodium 50 ml @ 100 mls/hr DAILY@09 IV 01/04/25 09:00 01/04/25 08:55 100 MLS/HR Examination: GENERAL:Normal, HEENT:Normal, NECK:Normal, LUNGS:Normal, CVS:Normal, ABDOMEN:Normal, MSK:Normal, MSK:Abnormal (RIGHT FOOT DRESSING), SKIN:Normal, NEURO:Normal, :Normal laboratory and microbiology Laboratory Tests 12/31/24 05:59 Test 12/31/24 05:59 Range/Units Serum Glucose 101 74-106 mg/dL Problem List/Assessment/Plan Problem List/Assessment/Plan * Diabetes mellitus. He will be placed on sliding scale insulin and the hemoglobin A1c will be checked. * Atrial fibrillation for which Eliquis is on hold. * Hypertension. * Hyperlipidemia. * Obesity. * Status post right foot surgery for removal of right foot mass- melanoma, onc consult- dw dr Arreola advance care planning- full code- time spent 19 mins Plan discussed with: Patient Dietary Evaluation Review Comments: 1. Continue current diet regime Expected Outcomes/Goals: 1. Wound healing, PO >75% intake Date of Service: Jan 04, 2025 Billing Provider: NBA LEYVA MD Common Visit Codes: [id number] INP/OBS CARE(HIGH) NBA LEYVA MD Jan 04, 2025 12:05
--- NOTE | 2025-01-04 13:36 | DVHINCON2 ---
Date of service: Jan 04, [address] Angie Wyatt Reason for Consultation Melanoma incompletely resected History of Present Illness 69 years old gentleman who has a history that he had a growth on his right foot for years and in the last 3-4 months it has started to change colors and start getting bigger and causing some discomfort. He says he had a biopsy as an outpatient and was told that he has cancer four months back. He does not remember having scans of the whole body. He says he has had images on the right foot. Now he was admitted for excision of the right foot mass and had excision done on 12/30/2024 The pathology showed malignant melanoma 2.5 cm maximum thickness with ulceration, no microscopic satellite lesions, no microsatellites. Peripheral and deep margins are all positive for invasive melanoma. Mitotic rate is 15 mitoses per mm sq. LVI is indeterminate. No neuro tropism or tumor regression. No lymph nodes. Pathologically T4 B, NX no in-situ component Sections show a large tumor within the dermis with the ulceration of the overlying epidermis. However within the intact epidermis no in-situ melanoma is identified. Therefore it is unclear whether this represents a primary or metastatic tumor. The specimen was received in three unoriented pieces. With in the largest fragment tumor extends to the peripheral and deep margins and shows a tumor thickness of 2.5 cm. Additionally extensive tumor is also seen within the separately submitted fragments. The patient had a skin graft also The patient has a history of diabetes and has been trying to lose weight and has lost a few lb. No headaches nausea vomiting. No fevers night sweats no b ruising or bleeding. No pains in other parts of the body except of the right foot Past Medical History Diabetes Hypertension Hyperlipidemia Irregular heart Family History: Diabetes mellitus G8 BROTHER G8 BROTHER Family History Unremarkable for malignancy or hematological disorders Social History Patient is retired from the [employer] No smoking drinking or drugs Allergies: Coded Allergies: NO KNOWN ALLERGIES (Unverified , 05/01/18) Home Meds Reported Medications Metoprolol Tartrate (Metoprolol Tartrate) 25 Mg Tab, 25 MG PO DAILY, TAB 12/23/24 Metformin Hydrochloride (Metformin Hcl) 500 Mg Tab, 500 MG PO BIDWM, TAB 12/23/24 Apixaban Base (ELIQUIS) 5 Mg Tab, 5 MG PO BID, TAB 12/23/24 Atorvastatin Calcium (Lipitor) 40 Mg Tab, 40 MG PO DAILY, TAB 12/23/24 Current Medications Current Medications Medications (Trade) Dose Ordered Sig/Rianna Route PRN Reason Start Time Stop Time Status Last Admin Ceftriaxone Sodium 50 ml @ 100 mls/hr DAILY@09 IV 01/04/25 09:00 01/04/25 08:55 Vital Signs Vital Signs Date Time Temp Pulse Resp B/P (MAP) Pulse Ox O2 Delivery O2 Flow Rate FiO2 01/04/25 08:55 83 146/101 01/04/25 08:31 98.5 16 95 98.5 01/04/25 08:00 Room Air* 0 21 Physical Exam Moderately built and nourished, in no acute distress, alert and oriented. No jaundice Head and neck: Unremarkable for any masses or neck nodes. No conjunctival or mucosal hemorrhage Lungs: Clear Cardiovascular: S1-S2 heard well Abdomen: No organomegaly, tenderness or ascites. Bowel sounds are present. Extremities: No clubbing edema cyanosis or calf tenderness. Skin: Unremarkable for petechia purpura ecchymosis Lymphadenopathy: None Neurological exam: No focal deficit right foot is status post surgery and is in dressing Labs/Diagnostic Data Labs Test 01/04/25 11:09 12/31/24 05:59 12/23/24 12:26 Range/Units POC Glucose 148 H 70-106 mg/dl White Blood Count 9.5 4.4-10.8 10^3/uL Red Blood Count 4.47 L 4.5-5.90 10^6/uL Hemoglobin 13.6 13.5-17.5 g/dL Hematocrit 40.6 L 41.0-53.0 % Mean Corpuscular Volume 90.9 80.0-100.0 fL Mean Corpuscular Hemoglobin 30.5 28.0-32.0 pg Mean Corpuscular Hemoglobin Concent 33.6 32.0-36.0 g/dL Red Cell Distribution Width 12.5 11.8-14.3 % Platelet Count 338 140-450 10^3/uL Mean Platelet Volume 7.2 6.9-10.8 fL Neutrophils (%) (Auto) 68.0 37.0-80.0 % Lymphocytes (%) (Auto) 25.2 10.0-50.0 % Monocytes (%) (Auto) 5.0 0.0-12.0 % Eosinophils (%) (Auto) 1.4 0.0-7.0 % Basophils (%) (Auto) 0.4 0.0-2.0 % Neutrophils # (Auto) 6.5 1.6-8.6 10 ^3/uL Lymphocytes # (Auto) 2.4 0.4-5.4 10 ^3/uL Monocytes # (Auto) 0.5 0-1.3 10 ^3/uL Eosinophils # (Auto) 0.1 0-0.8 10 ^3/uL Basophils # (Auto) 0 0-0.2 10 ^3/uL Nucleated Red Blood Cells 0.0 % Sodium Level 139 136-145 mmol/L Potassium Level 3.9 3.5-5.1 mmol/L Chloride Level 104 98-107 mmol/L Carbon Dioxide Level 26 20-31 mmol/L Anion Gap 9 5-15 Blood Urea Nitrogen 13 9-23 mg/dL Creatinine 0.73 0.700-1.30 mg/dL Glomerular Filtration Rate Calc 100 >90 mL/min BUN/Creatinine Ratio 17.8 10.0-20.0 Serum Glucose 101 74-106 mg/dL Hemoglobin A1c 5.3 <5.7 % A1C Calcium Level 9.1 8.7-10.4 mg/dL Total Bilirubin 0.8 0.2-1.0 mg/dL Aspartate Amino Transferase (AST) 19 13-40 U/L Alanine Aminotransferase (ALT) 15 7-40 U/L Alkaline Phosphatase 80 46-116 U/L Total Protein 6.5 5.7-8.2 g/dL Albumin 4.3 3.2-4.8 g/dL Prothrombin Time 10.7 9.3-11.8 sec Prothrombin Time INR 1.01 0.9-1.15 Activated Partial Thromboplast Time 28.5 24.5-34.5 SEC Urine Color Yellow Yellow Urine Clarity Turbid H Clear Urine pH 6.0 5.0-9.0 Urine Specific [place] 1.031 1.001-1.035 Urine Protein 1+ H Negative Urine Ketones Trace Negative Urine Blood Negative Negative /uL Urine Nitrite Negative Negative Urine Bilirubin Negative Negative Urine Urobilinogen 3 H Negative mg/dL Urine Leukocyte Esterase Trace Negative /uL Urine RBC 43 0 - 3 /hpf Urine Microscopic WBC 4 H 0-3 /HPF Urine Squamous Epithelial Cells Few <5 /hpf Urine Bacteria None seen None Seen /hpf Urine Hyaline Casts Few 0 - 2 /lpf Urine Mucus Few None Seen Urine Glucose Trace Normal mg/dL Assessment 1. Malignant melanoma from the right foot excision done on 12/30/2024, 2.5 cm tumor thickness all the margins are positive, 15 mitoses per mm squared, LVI is indeterminate. PT4b, pNX. No scans available to review patient does not remember having any scans. He says he any biopsy four months back of the right foot. He says he has this tumor for the last 3-4 years diabetes CBC was normal and CMP was unremarkable also 3. Hypertension 4. Hyperlipidemia 5. History of irregular heartbeat Plan/Recommendation Patient needs to have complete excision of the tumor with sentinel lymph node sampling and scanning of his whole body including the MRI of the brain I will order the MRI of the brain in the hospital with and without contrast He needs to have a PET-CT as an outpatient We will do a CT of the chest abdomen pelvis with contrast the patient if possible should be referred to a higher level of care for adequate surgery The patient is advised to come see me after the surgery is done Also we will check his LDH Plan discussed with: Patient CATRACHO RODRIGUEZ MD Jan 04, 2025 13:36
[2025-01-04] MEDS: GADOTERATE MEG 7.5 MMOL/15ml INJ (0.5MMOL/ml) IV ONE (16:07)
--- NOTE | 2025-01-04 16:54 | DVH ---
MRI BRAIN WITH CONTRAST CLINICAL HISTORY: melanoma TECHNIQUE: Multiplanar multisequence images of the brain were obtained prior to and following intravenous admini stration of contrast. 10/10 cc of gadavist contrast from a prefilled syringe was administered intravenously. Comparison: None FINDINGS: There is no restricted diffusion. There are few scattered punctate hyperintense T2 foci in the suprat entorial white matter compatible with minimal chronic microvascular ischemic changes. There is no pat hologic enhancement. There is no evidence of hemorrhage, mass, mass effect or midline shift. There is no hydrocephalus or extra-axial fluid collection. The visualized intracranial vasculature demonstrat es appropriate flow-voids. The midline structures appear unremarkable. The craniocervical junction is within normal limits. The calvarium demonstrates normal marrow signal. There is a retention cyst in the left maxillary sinus. Is mucosal thickening along the posterior right maxillary sinus. The mastoi d air cells are clear. IMPRESSION: 1. There is no evidence of intracranial metastasis. HS:Y
[2025-01-04] MEDS: IOHEXOL 300 MG/ML 100ML BOTTLE IJ ONE (17:33)
--- NOTE | 2025-01-04 18:29 | DVH ---
CT CT CHEST/AB/PL W CON- IV ONLY HISTORY: melanom Comparison Study: None TECHNIQUE: Multidetector CT of the chest, abdomen and pelvis was performed from lower neck to pubic s ymphysis with the use of intravenous contrast. Axial, coronal and sagittal multiplanar reformats were performed by the technologist on a separate workstation. Radiation Dose : CTDI vol 19.68 mGy, DLP 1410.34 mGy*cm. Findings: Chest: Lungs: Multiple pulmonary nodules, the largest measures 4.0 x 3.2 cm in the right apex. Pleura: Unremarkable Heart/Great vessels: Cardiomegaly. No pericardial effusion. Mediastinum: Large ill-defined, left thyroid nodule Soft tissues/Bones: Unremarkable Abdomen: Liver: Unremarkable. Gallbladder: Unremarkable. Spleen: Unremarkable Pancreas: Unremarkable Adrenals: 1.9 cm left adrenal nodule. Kidneys: Unremarkable GI tract: Unremarkable : Enlarged prostate Vasculature: Unremarkable Lymphadenopathy: Absent Peritoneum: No ascites Musculoskeletal: Mild multilevel degenerative changes of the thoracolumbar spine. Soft tissues: Unremarkable Impression: Chest: 1. Multiple pulmonary nodules, the largest measures 4.0 x 3.2 cm in the right apex. Cannot exclude me tastatic disease. 2. Large ill-defined, left thyroid nodule. Recommend a nonemergent, outpatient thyroid ultrasound for further evaluation. Abdomen: 1. No acute abdominopelvic abnormalities. 2. 1.9 cm left adrenal nodule. Recommend an adrenal protocol CT or MRI for further evaluation. 3. Enlarged prostate. Correlate with physical exam and PSA.
[2025-01-05 01:00] VITALS: BP 150/95; PULSE 76; RESP 17; TEMP 98.3; O2SAT 97
[2025-01-05 05:00] VITALS: BP 129/81; PULSE 67; RESP 17; TEMP 97.8; O2SAT 95
[2025-01-05 08:57] VITALS: BP 144/110; PULSE 75; RESP 18; TEMP 98.1; O2SAT 97
--- NOTE | 2025-01-05 11:38 | DVHPN2 ---
Progress Note Date Seen: Jan 05, 2025 Medical Necessity Reason Pt with a Central, PICC or Fol: No Subjective Patient reports: No new complaints Review of Systems: HEENT:Normal, CVS:Normal, RESPIRATORY:Normal, GI:Normal, :Normal, MSK:Normal, NEURO:Normal Objective vital signs Vital Sign Date Time Temp Pulse Resp B/P (MAP) Pulse Ox O2 Delivery O2 Flow Rate FiO2 01/05/25 08:57 98.1 75 18 144/110 (121) 97 98.1 01/05/25 07:42 Room Air* 0 21 Total Intake and Output 01/04/25 01/04/25 01/05/25 15:00 23:00 07:00 Intake Total 50 ml 840 ml 500 ml Output Total 1000 ml Balance 50 ml 840 ml -500 ml medications Current Medications Medications Dose Ordered Sig/Rianna Route Start Time Stop Time Status Last Admin Dose Admin Nitroglycerin 0.4 mg Q5MINP PRN SL 12/30/24 13:15 Morphine Sulfate 2 mg Q30M PRN IV 12/30/24 13:15 Diagnostic Test (Pha) 1 strip ACHS 12/30/24 17:00 01/05/25 11:32 1 STRIP Insulin Human Regular ACHS SC 12/30/24 17:00 01/05/25 11:33 4 UNITS Dextrose 50 ml UD PRN IV 12/30/24 14:30 Acetaminophen/ Hydrocodone Bitart 1 tab Q6HPRN PRN PO 12/30/24 14:30 12/31/24 22:30 1 TAB Morphine Sulfate 2 mg Q4HPRN PRN IV 12/30/24 14:30 01/01/25 16:19 2 MG Ondansetron HCl 4 mg Q6HPRN PRN IV 12/30/24 14:30 Acetaminophen 650 mg Q6HP PRN PO 12/30/24 14:30 01/04/25 00:17 650 MG Metoprolol Succinate 25 mg DAILY PO 12/31/24 10:00 01/05/25 08:51 25 MG Hydralazine HCl 10 mg Q6HP PRN IV 12/30/24 14:30 01/04/25 17:17 10 MG Ceftriaxone Sodium 50 ml @ 100 mls/hr DAILY@09 IV 01/04/25 09:00 01/05/25 08:51 100 MLS/HR Examination: GENERAL:Normal, HEENT:Normal, NECK:Normal, LUNGS:Normal, CVS:Normal, ABDOMEN:Normal, MSK:Normal, MSK:Abnormal (RIGHT FOOT DRESSING), SKIN:Normal, NEURO:Normal, :Normal laboratory and microbiology Laboratory Tests 12/31/24 05:59 Test 12/31/24 05:59 Range/Units Serum Glucose 101 74-106 mg/dL Problem List/Assessment/Plan Problem List/Assessment/Plan * Diabetes mellitus. He will be placed on sliding scale insulin and the hemoglobin A1c will be checked. * Atrial fibrillation for which Eliquis is on hold. * Hypertension. * Hyperlipidemia. * Obesity. * Status post right foot surgery for removal of right foot mass- melanoma, onc consult- dw dr Arreola * Right lung mass: biopsy advance care planning- full code- time spent 19 mins Plan discussed with: Patient My Orders My Orders Orders - NBA LEYVA MD Procedure Category Date Status Time * Hematology/Oncology CONS 01/04/25 Transmitted Consult 12:00 * Radiologist Consult CONS 01/05/25 Transmitted 11:25 Dietary Evaluation Review Comments: 1. Continue current diet regime Expected Outcomes/Goals: 1. Wound healing, PO >75% intake Date of Service: Jan 05, 2025 Billing Provider: NBA LEYVA MD Common Visit Codes: [id number] INP/OBS CARE(HIGH) NBA LEYVA MD Jan 05, 2025 11:37
[2025-01-05] MEDS: fentaNYL CITRATE 100 MCG/2 ML VL IV ONE (12:15)
[2025-01-05] MEDS: MIDAZOLAM HCL 2MG/2ML 2ml VIAL (1mg/ml) IV ONE (12:15)
[2025-01-05] MEDS: LIDOCAINE 2% (LOCAL ANESTH.) PF 5ml SDV ONE (12:29)
[2025-01-05 13:00] VITALS: BP 148/86; PULSE 74; RESP 18; TEMP 98.4; O2SAT 96
--- NOTE | 2025-01-05 13:18 | DVH ---
CHEST RADIOGRAPH Indication: POST LUNG BX Technique: Single frontal view of the chest was obtained COMPARISON: XY CHEST XRAY 1 VIEW on DOS: 01/01/25 FINDINGS: Lines and Tubes: None Lungs: Clear Pleura: No effusion. No pneumothorax. Cardiomediastinal contours: Unremarkable Bones: Unremarkable IMPRESSION: No appreciable pneumothorax.
--- NOTE | 2025-01-05 13:27 | DVH ---
CT CHEST WITHOUT CONTRAST, HISTORY: LUNG BIOPSY PROCEDURE: Informed consent was obtained. The patient was placed prone on the CT scanner. A limited l ocalization CT scan of the lung was obtained. The skin overlying the lesion was prepped with chlorhex idine which was allowed to dry and draped in sterile fashion. Time out was performed. The skin and so ft tissues were infiltrated with Xylocaine, and IV sedation was administered. With intermittent CT gu idance, a 19 gauge Temno outer coaxial guiding needle was advanced into the right lung mass. The need le position was confirmed with CT scan. 1 core biopsies were obtained using Temno inner 20 gauge biop sy needle. The specimens were sent in formalin to pathology for analysis. A visceral blood patch was applied as the needle was withdrawn the needle was withdrawn, and post procedural CT obtained throug h the biopsy region. No immediate complication was identified was noted, and patient was transport to recovery in stable condition without respiratory distress. DLP = 1582 mGy-cm. SEDATION: Dr. Ingris Baldwin was personally responsible for the administration of moderate sedation during the procedure performed, including the use of an independent trained observer who had no other duties during the procedure. The drugs utilized were IV fentanyl and versed (see nursing log for details). The total time of supervision by the attending physician was approximately 45 minutes. FINDINGS: Limited CT scan demonstrates a soft tissue mass in the right upper and the biopsy needle wi thin the margin of the lung mass. No significant post biopsy hemorrhage or pneumothorax is noted. IMPRESSION/PLAN: CT guided lung biopsy. Pathology pending. Follow up 2 hours CXR.
--- NOTE | 2025-01-05 15:08 | DVH ---
CHEST RADIOGRAPH Indication: post right lung biopsy Technique: Single frontal view of the chest was obtained COMPARISON: XY CHEST PORTABLE on DOS: 01/05/25, XY CHEST XRAY 1 VIEW on DOS: 01/01/25 FINDINGS: Lines and Tubes: None Lungs: Right upper lobe opacity. Pleura: No effusion. No pneumothorax. Cardiomediastinal contours: Unremarkable Bones: Unremarkable IMPRESSION: No appreciable pneumothorax.
[2025-01-05 16:41] VITALS: BP 144/94; PULSE 60; RESP 16; TEMP 98.4; O2SAT 96
[2025-01-05 21:00] VITALS: BP 120/89; PULSE 68; RESP 20; TEMP 97.9; O2SAT 98
[2025-01-06] VITALS (7 sets, daily range): BP systolic 124–161; BP diastolic 72–103; PULSE 61–91; RESP 16–20; TEMP 97.8–98.6; O2SAT 75–97
[2025-01-06] MEDS: ONDANSETRON HCL 4 MG/2 ML VIAL IV PRN (11:32)
--- NOTE | 2025-01-06 11:37 | DVHPN2 ---
Progress Note Date Seen: Jan 06, 2025 Medical Necessity Reason Pt with a Central, PICC or Fol: No Subjective Patient reports: No new complaints Review of Systems: HEENT:Normal, CVS:Normal, RESPIRATORY:Normal, GI:Normal, :Normal, MSK:Normal, NEURO:Normal Objective vital signs Vital Sign Date Time Temp Pulse Resp B/P (MAP) Pulse Ox O2 Delivery O2 Flow Rate FiO2 01/06/25 08:48 162/111 01/06/25 08:47 85 01/06/25 08:30 97.8 16 96 97.8 01/06/25 08:00 Room Air* 0 21 Total Intake and Output 01/05/25 01/05/25 01/06/25 15:00 23:00 07:00 Intake Total 50 ml 675 ml 800 ml Balance 50 ml 675 ml 800 ml medications Current Medications Medications Dose Ordered Sig/Rianna Route Start Time Stop Time Status Last Admin Dose Admin Nitroglycerin 0.4 mg Q5MINP PRN SL 12/30/24 13:15 Morphine Sulfate 2 mg Q30M PRN IV 12/30/24 13:15 Diagnostic Test (Pha) 1 strip ACHS 12/30/24 17:00 01/06/25 11:32 1 STRIP Insulin Human Regular ACHS SC 12/30/24 17:00 01/06/25 11:33 2 UNITS Dextrose 50 ml UD PRN IV 12/30/24 14:30 Acetaminophen/ Hydrocodone Bitart 1 tab Q6HPRN PRN PO 12/30/24 14:30 12/31/24 22:30 1 TAB Morphine Sulfate 2 mg Q4HPRN PRN IV 12/30/24 14:30 01/01/25 16:19 2 MG Ondansetron HCl 4 mg Q6HPRN PRN IV 12/30/24 14:30 01/06/25 11:32 4 MG Acetaminophen 650 mg Q6HP PRN PO 12/30/24 14:30 01/04/25 00:17 650 MG Metoprolol Succinate 25 mg DAILY PO 12/31/24 10:00 01/06/25 08:47 25 MG Hydralazine HCl 10 mg Q6HP PRN IV 12/30/24 14:30 01/06/25 08:48 10 MG Ceftriaxone Sodium 50 ml @ 100 mls/hr DAILY@09 IV 01/04/25 09:00 01/06/25 08:46 100 MLS/HR Examination: GENERAL:Normal, HEENT:Normal, NECK:Normal, LUNGS:Normal, CVS:Normal, ABDOMEN:Normal, MSK:Normal, SKIN:Normal, NEURO:Normal, :Normal laboratory and microbiology Laboratory Tests 12/31/24 05:59 Test 12/31/24 05:59 Range/Units Serum Glucose 101 74-106 mg/dL Problem List/Assessment/Plan Problem List/Assessment/Plan * Diabetes mellitus. He will be placed on sliding scale insulin and the hemoglobin A1c will be checked. * Atrial fibrillation for which Eliquis is on hold. * Hypertension. * Hyperlipidemia. * Obesity. * Status post right foot surgery for removal of right foot mass- melanoma, onc consult- dw dr Arreola * Right lung mass: biopsy- repeat * abd pain: ppi advance care planning- full code- time spent 19 mins Plan discussed with: Patient My Orders My Orders Orders - NBA LEYVA MD Procedure Category Date Status Time Ct Guidance For CT 01/05/25 Resulted Needle Placeme 12:[address] 01/05/25 Resulted 12:31 Chest Portable XY 01/05/25 Resulted 12:42 Chest Portable XY 01/05/25 Transmitted 13:08 Chest Portable XY 01/05/25 Resulted 15:00 Dietary Evaluation Review Comments: 1. Continue current diet regime Expected Outcomes/Goals: 1. Wound healing, PO >75% intake Date of Service: Jan 06, 2025 Billing Provider: NBA LEYVA MD Common Visit Codes: [id number] INP/OBS CARE(HIGH) NBA LEYVA MD Jan 06, 2025 11:37
[2025-01-06] MEDS: PANTOPRAZOLE 40 MG/10 ML VIAL INJ IV ONE (12:01)
[2025-01-06] MEDS: SUCRALFATE 1 GM TAB PO ONE (12:01)
[2025-01-06] MEDS: fentaNYL CITRATE 100 MCG/2 ML VL ONE (14:23)
[2025-01-06] MEDS: MIDAZOLAM HCL 2MG/2ML 2ml VIAL (1mg/ml) ONE (14:23)
--- NOTE | 2025-01-06 15:59 | DVH ---
XY CHEST PORTABLE, HISTORY: POST LUNG BX COMPARISON: XY CHEST PORTABLE on DOS: 01/05/25, XY CHEST PORTABLE on DOS: 01/05/25, XY CHEST XRAY 1 VIE W on DOS: 01/01/25 XY CHEST PORTABLE on DOS: 01/05/25, XY CHEST PORTABLE on DOS: 01/05/25, XY CHEST XRAY 1 VIEW on DOS: TECHNICAL DATA: 1 view of the chest was obtained. FINDINGS: Lines and tubes: None Cardiomediastinal silhouette: normal Pulmonary vasculature: normal Lung expansion: normal Lung airspace: Stable right upper lobe mass. Lung interstitium: normal Pleura: normal Pneumothorax: no Bones: Unremarkable Other: no IMPRESSION: No acute intrathoracic abnormality. No pneumothorax seen.
--- NOTE | 2025-01-06 16:02 | DVH ---
PROCEDURE: CT GUIDED BIOPSY OF HISTORY: LUNG BX DOCUMENTATION: Informed consent was obtained and a procedural time out was performed. SEDATION: Moderate sedation was utilized during the procedure. The patient received benzodiazepines a nd opioids, the dosing of which was documented in the patient s permanent medical record. Pre-sedatio n history and evaluation revealed no contraindications to sedation. The patient s level of consciousn ess and physiologic status was monitored continuously by the physician and nursing staff throughout t he procedure. Total intra-service moderate sedation time was 30 minutes. TECHNIQUE: The skin over the right upper posterior chest was sterilely prepped, draped, and infiltrat ed with 1% lidocaine. Using CT guidance, a 19-gauge coaxial needle was directed into right upper lobe mass. The 20-gauge Temno biopsy needle was inserted coaxially and 3 core biopsy specimens were obtai dax. The coaxial needle was then removed and hemostasis was achieved with manual compression. Steril e dressings were applied. FINDINGS: Limited CT imaging demonstrates a right upper lobe mass. Imaging confirms the needle tip wi thin right upper lobe mass. Post-biopsy CT imaging showed no apparent complication. IMPRESSION: CT GUIDED BIOPSY OF the right upper lobe mass. PLEASE FOLLOW UP WITH PATHOLOGY FOR FINAL RESULTS.
--- NOTE | 2025-01-06 16:03 | DVH ---
CT CHEST WITHOUT CONTRAST INDICATION: LUNG BX HISTORY: LUNG BX DOCUMENTATION: Informed consent was obtained and a procedural time out was performed. SEDATION: Moderate sedation was utilized during the procedure. The patient received benzodiazepines a nd opioids, the dosing of which was documented in the patient s permanent medical record. Pre-sedatio n history and evaluation revealed no contraindications to sedation. The patient s level of consciousn ess and physiologic status was monitored continuously by the physician and nursing staff throughout t he procedure. Total intra-service moderate sedation time was 30 minutes. TECHNIQUE: The skin over the right upper posterior chest was sterilely prepped, draped, and infiltrat ed with 1% lidocaine. Using CT guidance, a 19-gauge coaxial needle was directed into right upper lobe mass. The 20-gauge Temno biopsy needle was inserted coaxially and 3 core biopsy specimens were obtai dax. The coaxial needle was then removed and hemostasis was achieved with manual compression. Sterile dressings were applied. FINDINGS: Limited CT imaging demonstrates a right upper lobe mass. Imaging confirms the needle tip wi thin right upper lobe mass. Post-biopsy CT imaging showed no apparent complication. IMPRESSION: CT GUIDED BIOPSY OF the right upper lobe mass. PLEASE FOLLOW UP WITH PATHOLOGY FOR FINAL RESULTS.
[2025-01-06] MEDS: SUCRALFATE 1 GM TAB PO SCH (21:33)
[2025-01-07 01:00] VITALS: BP 156/80; PULSE 74; RESP 19; TEMP 98.4; O2SAT 95
[2025-01-07] MEDS: PANTOPRAZOLE 40 MG/10 ML VIAL INJ IV SCH (08:41)
[2025-01-07 09:00] VITALS: BP 147/88; PULSE 50; RESP 16; TEMP 98.6; O2SAT 95
[2025-01-07 13:00] VITALS: BP 160/93; PULSE 66; RESP 20; TEMP 98.7; O2SAT 95
[2025-01-07 16:31] VITALS: BP 141/88; PULSE 92; RESP 18; TEMP 98; O2SAT 96
[2025-01-07 20:00] VITALS: RESP 18
[2025-01-07 21:00] VITALS: BP 148/89; PULSE 72; RESP 18; TEMP 99.4; O2SAT 95
[2025-01-07] MEDS: CEPHALEXIN 250 MG CAP PO SCH (21:27)
[2025-01-08] VITALS (9 sets, daily range): BP systolic 128–162; BP diastolic 84–106; PULSE 65–94; RESP 16–20; TEMP 97.7–98.8; O2SAT 95–98
[2025-01-08] MEDS: PANTOPRAZOLE 40 MG TAB PO SCH (06:23)
--- NOTE | 2025-01-08 15:11 | DVHPN2 ---
Subjective s/p ct guided bx, NAEON, pending result Reviewed: Care Plan, H&P, Labs, Medications, Previous Orders, Radiology Changes from previous H/P or p: No Changes General: Per HPI Objective Vitals Vital Signs Date Time Temp Pulse Resp B/P (MAP) Pulse Ox O2 Delivery O2 Flow Rate FiO2 01/08/25 13:00 98.1 72 18 162/84 (110) 98 98.1 01/08/25 07:56 Room Air* 0 21 Intake/Output Intake and Output 01/08/25 07:00 Intake Total 2080 ml Output Total 600 ml Balance 1480 ml Intake Oral 2080 ml Output Urine Total 600 ml # Voids 7 Medications Current Medications Medications Dose Ordered Sig/Rianna Route Start Time Stop Time Status Last Admin Dose Admin Nitroglycerin 0.4 mg Q5MINP PRN SL 12/30/24 13:15 Morphine Sulfate 2 mg Q30M PRN IV 12/30/24 13:15 Diagnostic Test (Pha) 1 strip ACHS 12/30/24 17:00 01/08/25 11:24 1 STRIP Insulin Human Regular ACHS SC 12/30/24 17:00 01/07/25 17:12 2 UNITS Dextrose 50 ml UD PRN IV 12/30/24 14:30 Acetaminophen/ Hydrocodone Bitart 1 tab Q6HPRN PRN PO 12/30/24 14:30 01/06/25 21:55 1 TAB Morphine Sulfate 2 mg Q4HPRN PRN IV 12/30/24 14:30 01/06/25 20:01 2 MG Ondansetron HCl 4 mg Q6HPRN PRN IV 12/30/24 14:30 01/06/25 11:32 4 MG Acetaminophen 650 mg Q6HP PRN PO 12/30/24 14:30 01/04/25 00:17 650 MG Metoprolol Succinate 25 mg DAILY PO 12/31/24 10:00 01/08/25 08:42 25 MG Hydralazine HCl 10 mg Q6HP PRN IV 12/30/24 14:30 01/06/25 23:15 10 MG Sucralfate 1 gm BID PO 01/06/25 22:00 01/08/25 08:42 1 GM Pantoprazole Sodium 40 mg DAILY@0600 PO 01/08/25 06:00 01/08/25 06:23 40 MG Cephalexin 500 mg TID PO 01/07/25 22:00 01/08/25 06:24 500 MG Laboratory Results Laboratory Tests 12/31/24 05:59 Urinalysis Test 12/23/24 12:26 Urine Color Yellow (Yellow) Urine Clarity Turbid (Clear) H Urine pH 6.0 (5.0-9.0) Urine Specific [place] 1.031 (1.001-1.035) Urine Protein 1+ (Negative) H Urine Ketones Trace (Negative) Urine Blood Negative /uL (Negative) Urine Nitrite Negative (Negative) Urine Bilirubin Negative (Negative) Urine Urobilinogen 3 mg/dL (Negative) H Urine Leukocyte Esterase Trace /uL (Negative) Urine RBC 43 /hpf (0 - 3) Urine Microscopic WBC 4 /HPF (0-3) H Urine Squamous Epithelial Cells Few /hpf (<5) Urine Bacteria None seen /hpf (None Seen) Urine Hyaline Casts Few /lpf (0 - 2) Urine Mucus Few (None Seen) Urine Glucose Trace mg/dL (Normal) Assessment/Plan Assessment/Plan Diabetes mellitus. He will be placed on sliding scale insulin and the hemoglobin A1c will be checked. Atrial fibrillation for which Eliquis is on hold. Hypertension. Hyperlipidemia. Obesity. Status post right foot surgery for removal of right foot mass- melanoma, onc consult- dw dr Arreola Right lung mass: biopsy- repeat pend rsult Abd pain: ppi dvt ppx n/a diet diabetic advance care planning- full code- time spent 19 mins Plan discussed with: Patient My Orders Orders - ALIN OH MD Procedure Category Date Status Time * [employer] CONS 01/08/25 Transmitted Consult Date of Service: Jan 08, 2025 Billing Provider: ALIN OH MD Common Visit Codes: [id number] INP/OBS CARE(HIGH) ALIN OH MD Jan 08, 2025 15:11
[2025-01-09 01:00] VITALS: BP 130/82; PULSE 98; RESP 18; TEMP 98.5; O2SAT 94
[2025-01-09 05:00] VITALS: BP 130/92; PULSE 74; RESP 18; TEMP 98.2; O2SAT 93
[2025-01-09] MEDS: ceFAZolin 2 GM/D5W100ml 100 ML IV ONE ×2 (07:09→07:10)
[2025-01-09] MEDS: BUPIVACAINE HCL 50 ML ONE (07:09)
[2025-01-09 09:07] VITALS: BP 123/90; PULSE 85; RESP 19; TEMP 97.4; O2SAT 95
[2025-01-09 12:46] VITALS: BP 152/112; PULSE 86; RESP 17; TEMP 97.6; O2SAT 94
--- NOTE | 2025-01-09 15:25 | DVHPN2 ---
Subjective naeon, pending result bx Reviewed: Care Plan, H&P, Labs, Medications, Previous Orders, Radiology Changes from previous H/P or p: No Changes General: Per HPI Objective Vitals Vital Signs Date Time Temp Pulse Resp B/P (MAP) Pulse Ox O2 Delivery O2 Flow Rate FiO2 01/09/25 12:46 97.6 86 17 152/112 (125) 94 97.6 01/09/25 08:00 Room Air* 0 21 Intake/Output Intake and Output 01/09/25 07:00 Intake Total 1840 ml Balance 1840 ml Intake Oral 1840 ml # Voids 6 # Bowel Movements 2 Medications Current Medications Medications Dose Ordered Sig/Rianna Route Start Time Stop Time Status Last Admin Dose Admin Nitroglycerin 0.4 mg Q5MINP PRN SL 12/30/24 13:15 Diagnostic Test (Pha) 1 strip ACHS 12/30/24 17:00 01/09/25 11:52 1 STRIP Insulin Human Regular ACHS SC 12/30/24 17:00 01/09/25 11:52 2 UNITS Dextrose 50 ml UD PRN IV 12/30/24 14:30 Ondansetron HCl 4 mg Q6HPRN PRN IV 12/30/24 14:30 01/06/25 11:32 4 MG Acetaminophen 650 mg Q6HP PRN PO 12/30/24 14:30 01/09/25 03:21 650 MG Metoprolol Succinate 25 mg DAILY PO 12/31/24 10:00 01/09/25 11:49 25 MG Hydralazine HCl 10 mg Q6HP PRN IV 12/30/24 14:30 01/08/25 15:41 10 MG Sucralfate 1 gm BID PO 01/06/25 22:00 01/08/25 21:03 1 GM Pantoprazole Sodium 40 mg DAILY@0600 PO 01/08/25 06:00 01/09/25 05:56 40 MG Cephalexin 500 mg TID PO 01/07/25 22:00 01/09/25 14:40 500 MG Laboratory Results Laboratory Tests 12/31/24 05:59 Urinalysis Test 12/23/24 12:26 Urine Color Yellow (Yellow) Urine Clarity Turbid (Clear) H Urine pH 6.0 (5.0-9.0) Urine Specific [place] 1.031 (1.001-1.035) Urine Protein 1+ (Negative) H Urine Ketones Trace (Negative) Urine Blood Negative /uL (Negative) Urine Nitrite Negative (Negative) Urine Bilirubin Negative (Negative) Urine Urobilinogen 3 mg/dL (Negative) H Urine Leukocyte Esterase Trace /uL (Negative) Urine RBC 43 /hpf (0 - 3) Urine Microscopic WBC 4 /HPF (0-3) H Urine Squamous Epithelial Cells Few /hpf (<5) Urine Bacteria None seen /hpf (None Seen) Urine Hyaline Casts Few /lpf (0 - 2) Urine Mucus Few (None Seen) Urine Glucose Trace mg/dL (Normal) Assessment/Plan Assessment/Plan Diabetes mellitus. He will be placed on sliding scale insulin and the hemoglobin A1c will be checked. Atrial fibrillation for which Eliquis is on hold. Hypertension. Hyperlipidemia. Obesity. Status post right foot surgery for removal of right foot mass- melanoma, onc consult- dw dr Arreola Right lung mass: biopsy- repeat pend rsult Abd pain: ppi dvt ppx n/a diet diabetic advance care planning- full code- time spent 19 mins Plan discussed with: Patient Date of Service: Jan 09, 2025 Billing Provider: ALIN OH MD Common Visit Codes: [id number] INP/OBS CARE(MOD) ALIN OH MD Jan 09, 2025 15:25
[2025-01-09 16:32] VITALS: BP 153/112; PULSE 60; RESP 17; TEMP 98.7; O2SAT 96
[2025-01-09 21:00] VITALS: BP 156/96; PULSE 85; RESP 20; TEMP 98.3; O2SAT 94
[2025-01-10] VITALS (7 sets, daily range): BP systolic 140–157; BP diastolic 70–97; PULSE 62–98; RESP 18–20; TEMP 97.7–98.4; O2SAT 95–99
--- NOTE | 2025-01-10 13:38 | DVHDS2 ---
Discharge Summary Date of Admission Dec 30, 2024 at 13:07 Date of Discharge: Jan 10, 2025 Labs/Diagnostic Data: Laboratory Results Test 01/10/25 05:13 12/31/24 05:59 12/23/24 12:26 POC Glucose 112 mg/dl (70-106) White Blood Count 9.5 10^3/uL (4.4-10.8) Red Blood Count 4.47 10^6/uL (4.5-5.90) Hemoglobin 13.6 g/dL (13.5-17.5) Hematocrit 40.6 % (41.0-53.0) Mean Corpuscular Volume 90.9 fL (80.0-100.0) Mean Corpuscular Hemoglobin 30.5 pg (28.0-32.0) Mean Corpuscular Hemoglobin Concent 33.6 g/dL (32.0-36.0) Red Cell Distribution Width 12.5 % (11.8-14.3) Platelet Count 338 10^3/uL (140-450) Mean Platelet Volume 7.2 fL (6.9-10.8) Neutrophils (%) (Auto) 68.0 % (37.0-80.0) Lymphocytes (%) (Auto) 25.2 % (10.0-50.0) Monocytes (%) (Auto) 5.0 % (0.0-12.0) Eosinophils (%) (Auto) 1.4 % (0.0-7.0) Basophils (%) (Auto) 0.4 % (0.0-2.0) Neutrophils # (Auto) 6.5 10 ^3/uL (1.6-8.6) Lymphocytes # (Auto) 2.4 10 ^3/uL (0.4-5.4) Monocytes # (Auto) 0.5 10 ^3/uL (0-1.3) Eosinophils # (Auto) 0.1 10 ^3/uL (0-0.8) Basophils # (Auto) 0 10 ^3/uL (0-0.2) Nucleated Red Blood Cells 0.0 % Sodium Level 139 mmol/L (136-145) Potassium Level 3.9 mmol/L (3.5-5.1) Chloride Level 104 mmol/L (98-107) Carbon Dioxide Level 26 mmol/L (20-31) Anion Gap 9 (5-15) Blood Urea Nitrogen 13 mg/dL (9-23) Creatinine 0.73 mg/dL (0.700-1.30) Glomerular Filtration Rate Calc 100 mL/min (>90) BUN/Creatinine Ratio 17.8 (10.0-20.0) Serum Glucose 101 mg/dL (74-106) Hemoglobin A1c 5.3 % A1C (<5.7) Calcium Level 9.1 mg/dL (8.7-10.4) Total Bilirubin 0.8 mg/dL (0.2-1.0) Aspartate Amino Transferase (AST) 19 U/L (13-40) Alanine Aminotransferase (ALT) 15 U/L (7-40) Alkaline Phosphatase 80 U/L (46-116) Total Protein 6.5 g/dL (5.7-8.2) Albumin 4.3 g/dL (3.2-4.8) Prothrombin Time 10.7 sec (9.3-11.8) Prothrombin Time INR 1.01 (0.9-1.15) Activated Partial Thromboplast Time 28.5 SEC (24.5-34.5) Urine Color Yellow (Yellow) Urine Clarity Turbid (Clear) Urine pH 6.0 (5.0-9.0) Urine Specific [place] 1.031 (1.001-1.035) Urine Protein 1+ (Negative) Urine Ketones Trace (Negative) Urine Blood Negative /uL (Negative) Urine Nitrite Negative (Negative) Urine Bilirubin Negative (Negative) Urine Urobilinogen 3 mg/dL (Negative) Urine Leukocyte Esterase Trace /uL (Negative) Urine RBC 43 /hpf (0 - 3) Urine Microscopic WBC 4 /HPF (0-3) Urine Squamous Epithelial Cells Few /hpf (<5) Urine Bacteria None seen /hpf (None Seen) Urine Hyaline Casts Few /lpf (0 - 2) Urine Mucus Few (None Seen) Urine Glucose Trace mg/dL (Normal) Other Laboratory Tests 12/31/24 05:59 Brief Hx & Hospital Course: 69 yo M prior with foot bx with melanoma but lost to follow up, admitted for foot mass, seen by podiatry, s/p excission and graft. pathology with malignant melanoma, and found lung lesion. currently s/p lung ct guided biopsy with pathology confirms malignant melanoma. Patient will need to follow up with PCP, oncology and podiatry for bandage removal as he has graft. Condition at Discharge: Good Final Diagnosis/Problems List malignant melanoma with lung mets Discharge Disposition: Home Discharge Instruct/Medications Diet: Cardiac 2g Na,low cholest Activity: No Restrictions, As Tolerated Follow Up/Referral: FU WITH PCP IN 1 WK f/u with dr CATRACHO RODRIGUEZ f/u with dr RANDOLPH Medications: PER Jan Discharge Statement: "Patient was advised to return to the ER or call 911 if any headaches, dizziness, shortness of breath, chest pain, abdominal pain, bleeding, fevers, or worsening of medical condition. Patient was counseled about treatment plan, medications, possible side effects, patientverbalized understanding. All questions were answered to the best of my ability. This discharge took greater then 30 minutes in planning, reviewing documentation, counseling the patient, and discussing with other team members." ASSESSMENT ASSESSMENT Assessment malignant melanoma with lung mets Date of Service: Jan 10, 2025 Billing Provider: ALIN OH MD Common Visit Codes: [id number] DISCH DAY >30min ALIN OH MD Jan 10, 2025 13:38
== END 2025-01-10 18:56 | disposition home or self-care (01) | DRG 361 ==
LOC: SUR 10:28 → OVERFLOW 13:07 → TELE-WESTW 16:33 → WEST WING 12-31 23:19
PROVIDERS: ADMIT Student in an Organized Health Care Education/Training Program; ATTEND Student in an Organized Health Care Education/Training Program
PROC: 0JBQ0ZX Excision of Right Foot Subcutaneous Tissue and Fascia, Open Approach, Diagnostic (ICD-10-PCS; principal; 2024-12-30 11:44)
PROC: 0HRMXK3 Replacement of Right Foot Skin with Nonautologous Tissue Substitute, Full Thickness, External Approach (ICD-10-PCS; 2025-01-01)
PROC: 0BBC3ZX Excision of Right Upper Lung Lobe, Percutaneous Approach, Diagnostic (ICD-10-PCS; 2025-01-05)
PROC: 0BBC3ZX Excision of Right Upper Lung Lobe, Percutaneous Approach, Diagnostic (ICD-10-PCS; 2025-01-06)
DX: C43.71 Malignant melanoma of right lower limb, including hip (principal); C78.01 Secondary malignant neoplasm of right lung; C43.9 Malignant melanoma of skin, unspecified; E11.622 Type 2 diabetes mellitus with other skin ulcer; E11.40 Type 2 diabetes mellitus with diabetic neuropathy, unspecified; I48.91 Unspecified atrial fibrillation; L97.319 Non-pressure chronic ulcer of right ankle with unspecified severity; E66.9 Obesity, unspecified; I10 Essential (primary) hypertension; I49.9 Cardiac arrhythmia, unspecified; E78.5 Hyperlipidemia, unspecified; Z79.1 Long term (current) use of non-steroidal anti-inflammatories (NSAID); Z79.899 Other long term (current) drug therapy; Z68.28 Body mass index [BMI] 28.0-28.9, adult; Z83.3 Family history of diabetes mellitus; Z79.01 Long term (current) use of anticoagulants; Z79.84 Long term (current) use of oral hypoglycemic drugs; Z85.820 Personal history of malignant melanoma of skin
CPT/HCPCS: 10005; 36415; 70553; 71045; 71250; 71260; 74177; 77012; 80053; 81001; 82962; 83036; 85025; 85610; 85730; 86850; 86900; 86901; 97110; 97116; 97163; 97530; G0378; J1100; J1815; J1885; J2003; J2250; J2405; J2470; J2704; J3490